=== PATIENT | female | born 1995 | race African-American/Black ===

== ENCOUNTER 2016-06-05 18:30 | Emergency (ER) | payer SELFPAY ==
[~2016-06-05] VITALS: Ht 160 cm; Wt 72.6 kg
[~2016-06-05 18:30] MED LIST: ACYCLOVIR200 MG ORAL; ACYCLOVIR400 MG ORAL; AZITHROMYCIN250 MG ORAL; BACTRIM DS TAB1 EAC1 ORAL; CIPROFLOXACIN500 M2 ORAL; CORTISONE + COO28 GM TP; DIFLUCAN200 MG ORAL; HYDROXYZINE HCL50 M1 PO; IBUPROFEN600 MG ORAL; KEFLEX500 MG ORAL; METRONIDAZOLE500 MG ORAL; MONISTAT 744 GM VG; NKM; NORCO 5-325 TA1 EACH ORAL; NYSTOP POWDER15 GM EXT; PHENAZOPYRIDIN100 MG ORAL; TAMIFLU75 MG ORAL; TYLENOL325 MG ORAL; VALTREX1000 MG PO; VIBRAMYCIN100 MG ORAL
[2016-06-05] MEDS ORDERED: Morphine Sulfate 4mg/ml Inj IVP ONE (19:00)
[2016-06-05 19:36] VITALS: BP 111/62
[2016-06-05 20:20] LABS: APPEARANCE,URINE SLIGHTLY CLOUDY; KETONES,URINE 1+ (NEGATIVE); LEUKOCYTE ESTERASE ,URINE 1+ (NEGATIVE); NITRITE,URINE NEGATIVE (NEGATIVE); PH,URINE 5 (4.5-8.0); PROTEIN,URINE 1+ (NEGATIVE); UROBILINOGEN,URINE 1 MG/DL (0.0-1.0)
[2016-06-05 20:24] LABS: BASOPHILS % (AUTO) 1.1 % (0.0-2.0); EOSINOPHILS % (AUTO) 0.7 % (0.0-3.0); LYMPHOCYTES % (AUTO) 17.1 % (20.0-45.0); MEAN CORPUSCULAR HEMOGLOBIN 28.3 PG (27.0-31.0); MEAN CORPUSCULAR HGB CONC 31.7 G/DL (32.0-36.0); MEAN CORPUSCULAR VOLUME 89 FL (80-99); MEAN PLATELET VOLUME 6.9 FL (6.5-10.1); MONOCYTES % (AUTO) 6.9 % (1.0-10.0); NEUTROPHILS % (AUTO) 74.2 % (45.0-75.0); PLATELET COUNT 267 K/UL (150-450); RED CELL DISTRIBUTION WIDTH 12.8 % (11.6-14.8); WHITE BLOOD COUNT 6.8 K/UL (4.8-10.8)
[2016-06-05 20:36] LABS: ALANINE AMINOTRANSFERASE 17 U/L (3-33); ALBUMIN/GLOBULIN RATIO 1.6 (1.0-2.7); ANION GAP 14 (5-15); ASPARTATE AMINO TRANSFERASE 19 U/L (5-40); CALCIUM 9.2 mg/dL (8.6-10.2); CARBON DIOXIDE 25 mEQ/L (20-30); CHLORIDE 101 mEQ/L (98-107); CREATININE 0.8 mg/dL (0.5-0.9); GLOMERULAR FILTRATION RATE > 60 mL/min (>60); HEMOLYSIS 2; POTASSIUM 4.4 mEQ/L (3.4-4.9); SODIUM 140 mEQ/L (135-145); TOTAL PROTEIN 7.1 g/dL (6.6-8.7)
[2016-06-05 20:46] LABS: RBC,URINE TNTC /HPF (0 - 2)
[2016-06-05 20:47] LABS: BACTERIA,URINE MODERATE /HPF; SQUAMOUS EPITHELIAL CELL,UR FEW /LPF (NONE/OCC)
[2016-06-05] MEDS ORDERED: Ketorolac 30mg Inj IV ONE (21:00)
[2016-06-05] MEDS ORDERED: KEFLEX500 MG ORAL (21:15)
[2016-06-05] MEDS ORDERED: Azithromycin 250mg tab ORAL ONE (21:15)
[2016-06-05] MEDS ORDERED: IBUPROFEN600 MG ORAL (21:15)
[2016-06-05] MEDS ORDERED: PHENAZOPYRIDIN100 MG ORAL (21:15)
[2016-06-05] MEDS ORDERED: DOXYCYCLINE MO100 MG ORAL (21:15)
[2016-06-05] MEDS ORDERED: TRAMADOL HCL50 MG ORAL (21:15)
[2016-06-05] MEDS ORDERED: Lidocaine 1% MPF 10mg/ml 5ml ONE (21:20)
[2016-06-05 21:32] VITALS: BP 115/68
--- NOTE | 2016-06-06 12:35 | Diagnostic Imaging Report ---
Indications: Pelvic pain, LMP 05/30/16 Technique: Transabdominal and transvaginal real-time grayscale and duplex Doppler imaging of the pelvis was performed. Findings: Comparison: 12/15/2015 Uterus measures 6.5 x 4.2 x 3.4cm. It demonstrates a 7 mm circumscribed hypoechoic focus in its posterior fundal myometrium, intramural to subserosal in location. The endometrial complex measures 10 mm in diameter. It is unremarkable in appearance without obvious focal abnormality. Cervix unremarkable. No free fluid is present in the cul-de-sac. Right ovary not identified. No extra-ovarian abnormality is seen. Left ovary measures 2.9 x 2.2 x 1.5 cm. It contains multiple small peripheral follicles.. Duplex Doppler imaging demonstrates normal blood flow. No extra-ovarian abnormality is seen. IMPRESSION: Small uterine fibroid Nonvisualization right ovary Otherwise negative
--- NOTE | 2016-06-06 19:15 | Emergency Room Report ---
History of Present Illness General Chief Complaint: Abdominal Pain Source: Patient Present Illness HPI 21-year-old female presents ED complaining of lower abdominal pain with vaginal bleeding. States symptoms started today. Notes vaginal bleeding. Denies any discharge. Denies any fevers or chills. Pain is sharp, 10 out of 10, nonradiating. No other aggravating relieving factors. No nausea or vomiting. Denies dysuria or hematuria. Denies any other associated symptoms Allergies: Coded Allergies: No Known Allergies (Unverified , 12/09/13) Patient History Past Medical History: asthma, COPD Past Surgical History: none Pertinent Family History: none Social History: Denies: alcohol use, drug use, smoking Last Menstrual Period: 05/29/16 Now: No Immunizations: UTD Reviewed Nursing Documentation: PMH: Agreed, PSxH: Agreed Nursing Documentation-PMH Past Medical History: No History, Except For Hx Cardiac Problems: No Hx Hypertension: No Hx Pacemaker: No Hx Asthma: Yes Hx COPD: Yes Hx Diabetes: No Hx Cancer: No Hx Gastrointestinal Problems: Yes Hx Dialysis: No Hx Neurological Problems: No Hx Cerebrovascular Accident: No Hx Seizures: No Review of Systems All Other Systems: negative except mentioned in HPI Physical Exam Vital Signs Date Time Temp Pulse Resp B/P Pulse Ox O2 Delivery O2 Flow Rate FiO2 06/05/16 18:36 97.9 99 13 116/87 100 Room Air Sp02 EP Interpretation: reviewed, normal General Appearance: alert, GCS 15, non-toxic, mild distress Head: normocephalic Eyes: bilateral eye PERRL, bilateral eye normal inspection ENT: normal ENT inspection Neck: normal inspection Respiratory: chest non-tender, lungs clear, normal breath sounds, speaking full sentences Cardiovascular #1: regular rate, rhythm, no edema Gastrointestinal: normal bowel sounds, soft, non-distended, no guarding, no rebound, tenderness - suprapubic Rectal: deferred Genitourinary: no CVA tenderness Musculoskeletal: normal inspection Neurologic: alert, oriented x3, responsive, motor strength/tone normal, sensory intact, speech normal Psychiatric: normal inspection Skin: normal inspection Lymphatic: normal inspection Medical Decision Making Diagnostic Impression: Primary Impression: Fibroid Qualified Codes: D25.9 - Leiomyoma of uterus, unspecified Additional Impression: UTI (urinary tract infection) Qualified Codes: N39.0 - Urinary tract infection, site not specified ER Course Hospital Course 21-year-old female presents to ED complaining of lower abdominal pain. vaginal bleeding Differential diagnoses include: gastrits, gastroenterits, ectopic , ovarian torsion/cyst, UTI Clinical course Patient placed on stretcher in ED. After initial history and physical I ordered labs, IV fluids and pain meds and pelvic ultrasound. Labs-no leukocytosis, electrolytes okay, beta hCG negative, UA + bacteria Pelvic ultrasound- fibroids Reassurance given. Patient was previously admitted for treatment of PID. Patient shows no signs of discharge at this time however given history we will treat again for potential PID. Given Rocephin and azithromycin here in ED Diagnosis - fibroids, UTI, PID Stable and discharged to home with Rx Motrin, Tramadol, doxycycline, Pyridium, Keflex. Followup with PMD/SERVICE OPERATOR. Return to ED if symptoms recur or worsen Labs Test 06/05/16 19:46 White Blood Count 6.8 K/UL (4.8-10.8) Red Blood Count 4.30 M/UL (4.20-5.40) Hemoglobin 12.2 G/DL (12.0-16.0) Hematocrit 38.3 % (37.0-47.0) Mean Corpuscular Volume 89 FL (80-99) Mean Corpuscular Hemoglobin 28.3 PG (27.0-31.0) Mean Corpuscular Hemoglobin Concent 31.7 G/DL (32.0-36.0) Red Cell Distribution Width 12.8 % (11.6-14.8) Platelet Count 267 K/UL (150-450) Mean Platelet Volume 6.9 FL (6.5-10.1) Neutrophils (%) (Auto) 74.2 % (45.0-75.0) Lymphocytes (%) (Auto) 17.1 % (20.0-45.0) Monocytes (%) (Auto) 6.9 % (1.0-10.0) Eosinophils (%) (Auto) 0.7 % (0.0-3.0) Basophils (%) (Auto) 1.1 % (0.0-2.0) Urine Color Yellow Urine Appearance Slightly cloudy Urine pH 5 (4.5-8.0) Urine Specific [place] 1.025 (1.005-1.035) Urine Protein 1+ (NEGATIVE) Urine Glucose (UA) Negative (NEGATIVE) Urine Ketones 1+ (NEGATIVE) Urine Occult Blood 5+ (NEGATIVE) Urine Nitrite Negative (NEGATIVE) Urine Bilirubin Negative (NEGATIVE) Urine Urobilinogen 1 MG/DL (0.0-1.0) Urine Leukocyte Esterase 1+ (NEGATIVE) Urine RBC Tntc /HPF (0 - 2) Urine WBC 2-4 /HPF (0 - 2) Urine Squamous Epithelial Cells Few /LPF (NONE/OCC) Urine Bacteria Moderate /HPF (NONE) Urine HCG, Qualitative Negative Sodium Level 140 mEQ/L (135-145) Potassium Level 4.4 mEQ/L (3.4-4.9) Chloride Level 101 mEQ/L (98-107) Carbon Dioxide Level 25 mEQ/L (20-30) Anion Gap 14 (5-15) Blood Urea Nitrogen 14 mg/dL (7-23) Creatinine 0.8 mg/dL (0.5-0.9) Estimat Glomerular Filtration Rate > 60 mL/min (>60) Glucose Level 98 mg/dL (74-106) Calcium Level 9.2 mg/dL (8.6-10.2) Total Bilirubin < 0.2 mg/dL (0.0-1.2) Aspartate Amino Transf (AST/SGOT) 19 U/L (5-40) Alanine Aminotransferase (ALT/SGPT) 17 U/L (3-33) Alkaline Phosphatase 65 U/L (35-104) Total Protein 7.1 g/dL (6.6-8.7) Albumin 4.4 g/dL (3.5-5.2) Globulin 2.7 g/dL Albumin/Globulin Ratio 1.6 (1.0-2.7) Human Chorionic Gonadotropin, Quant < 1 mIU/mL CT/MRI/US Diagnostic Results CT/MRI/US Diagnostic Results : Imaging Test Ordered: Pelvic US Impression uterine fibroid. no other acute process Last Vital Signs Date Time Temp Pulse Resp B/P Pulse Ox O2 Delivery O2 Flow Rate FiO2 06/05/16 21:32 97.7 69 15 115/68 100 Room Air Status: improved Disposition: HOME, SELF-CARE Condition: Stable Scripts Phenazopyridine Hcl* (PYRIDIUM*) 100 Mg Tablet 100 MG ORAL THREE TIMES A DAY, #10 TAB Prov: MARIA FERNANDA SANTIZO M.D. 06/05/16 Doxycycline Monohydrate* (DOXYCYCLINE MONOHYDRATE*) 100 Mg Capsule 100 MG ORAL Q12H, #14 CAP 0 Refills Prov: MARIA FERNANDA SANTIZO M.D. 06/05/16 Cephalexin* (KEFLEX*) 500 Mg Capsule 500 MG ORAL Q6H, #28 CAP 0 Refills Prov: MARIA FERNANDA SANTIZO M.D. 06/05/16 Tramadol Hcl* (ULTRAM*) 50 Mg Tablet 50 MG ORAL Q6H Y for For Pain, #20 TAB 0 Refills Prov: MARIA FERNANDA SANTIZO M.D. 06/05/16 Ibuprofen* (MOTRIN*) 600 Mg Tablet 600 MG ORAL Q8H Y for For Pain, #30 TAB 0 Refills Prov: MARIA FERNANDA SANTIZO M.D. 06/05/16 Referrals: [employer] [facility],REFERRIN Patient Instructions: Uterine Fibroids, [id number] MARIA FERNANDA SANTIZO M.D. Jun 06, 2016 19:15
== END 2016-06-05 21:32 | disposition home or self-care (01) ==
LOC: EMR 18:54
DX: D25.9 Leiomyoma of uterus, unspecified (principal); N39.0 Urinary tract infection, site not specified; J44.9 Chronic obstructive pulmonary disease, unspecified; J45.909 Unspecified asthma, uncomplicated
CPT/HCPCS: 36415; 76856; 80053; 81003; 81025; 84702; 85025; 87086; 96372; 96374; 96375; 99284; J0696; J1885; J2270; J2405

== ENCOUNTER 2016-07-29 09:07 | Emergency (ER) | payer SELFPAY ==
[~2016-07-29] VITALS: Ht 160 cm; Wt 71.7 kg
[~2016-07-29 09:07] MED LIST changes: +DOXYCYCLINE MO100 MG ORAL; +TRAMADOL HCL50 MG ORAL
[2016-07-29 09:20] VITALS: BP 111/76
[2016-07-29] MEDS ORDERED: Ketorolac 30mg Inj IV ONE (09:45)
[2016-07-29 09:52] LABS: APPEARANCE,URINE CLOUDY; KETONES,URINE NEGATIVE (NEGATIVE); LEUKOCYTE ESTERASE ,URINE 2+ (NEGATIVE); NITRITE,URINE NEGATIVE (NEGATIVE); PH,URINE 5 (4.5-8.0); PROTEIN,URINE 3+ (NEGATIVE); UROBILINOGEN,URINE NORMAL MG/DL (0.0-1.0)
[2016-07-29 10:06] LABS: BASOPHILS % (AUTO) 1.2 % (0.0-2.0); EOSINOPHILS % (AUTO) 1.5 % (0.0-3.0); LYMPHOCYTES % (AUTO) 19.6 % (20.0-45.0); MEAN CORPUSCULAR HEMOGLOBIN 29.2 PG (27.0-31.0); MEAN CORPUSCULAR HGB CONC 33.2 G/DL (32.0-36.0); MEAN CORPUSCULAR VOLUME 88 FL (80-99); MEAN PLATELET VOLUME 6.9 FL (6.5-10.1); MONOCYTES % (AUTO) 9.3 % (1.0-10.0); NEUTROPHILS % (AUTO) 68.3 % (45.0-75.0); PLATELET COUNT 253 K/UL (150-450); RED BLOOD COUNT 4.43 M/UL (4.20-5.40); RED CELL DISTRIBUTION WIDTH 12.3 % (11.6-14.8); WHITE BLOOD COUNT 6.6 K/UL (4.8-10.8)
[2016-07-29 10:14] LABS: ALANINE AMINOTRANSFERASE 27 U/L (3-33); ALBUMIN/GLOBULIN RATIO 1.4 (1.0-2.7); ANION GAP 13 (5-15); ASPARTATE AMINO TRANSFERASE 26 U/L (5-40); CALCIUM 9.3 mg/dL (8.6-10.2); CARBON DIOXIDE 26 mEQ/L (20-30); CHLORIDE 99 mEQ/L (98-107); CREATININE 0.9 mg/dL (0.5-0.9); GLOMERULAR FILTRATION RATE > 60 mL/min (>60); HEMOLYSIS 3; LIPASE 29 U/L (< 60); POTASSIUM 4.1 mEQ/L (3.4-4.9); SODIUM 138 mEQ/L (135-145); TOTAL PROTEIN 7.1 g/dL (6.6-8.7)
[2016-07-29 10:17] LABS: BACTERIA,URINE FEW /HPF; RBC,URINE TNTC /HPF (0 - 2); SQUAMOUS EPITHELIAL CELL,UR OCCASIONAL /LPF (NONE/OCC)
--- NOTE | 2016-07-29 12:44 | Emergency Room Report ---
History of Present Illness General Chief Complaint: Abdominal Pain Source: Patient Present Illness HPI Patient presents with suprapubic pain which began 07/27. She had similar pain last month and was diagnosed with a fibroid. Pain is 8/10, constant, not radiate. Some menstrual bleeding, not excessive. No fevers, dysuria, NVD, change bowels. no dizziness, ARREDONDO. Denies discharge. She took some xanax, THC and some other pain pills. Minimally better. She doesn't think she is , but is not sure. She's had PID in the past and this feels different. Allergies: Coded Allergies: No Known Allergies (Unverified , 12/09/13) Patient History Past Medical History: see triage record Social History: Reports: alcohol use, smoking Social History Narrative with sister Last Menstrual Period: now Now: No Reviewed Nursing Documentation: PMH: Agreed, PSxH: Agreed Nursing Documentation-PMH Past Medical History: No History, Except For Hx Cardiac Problems: No Hx Hypertension: No Hx Pacemaker: No Hx Asthma: Yes Hx COPD: Yes Hx Diabetes: No Hx Cancer: No Hx Gastrointestinal Problems: Yes - fibroids Hx Dialysis: No Hx Neurological Problems: No Hx Cerebrovascular Accident: No Hx Seizures: No Review of Systems All Other Systems: negative except mentioned in HPI Physical Exam Vital Signs Date Time Temp Pulse Resp B/P Pulse Ox O2 Delivery O2 Flow Rate FiO2 07/29/16 09:20 98.2 92 18 111/76 98 Room Air Sp02 EP Interpretation: reviewed, normal General Appearance: well appearing, no apparent distress, GCS 15 Head: normocephalic Eyes: bilateral eye PERRL, bilateral eye Scleral Injection ENT: moist mucus membranes Neck: supple Respiratory: lungs clear, normal breath sounds Cardiovascular #1: regular rate, rhythm Cardiovascular #2: 2+ radial (R) Gastrointestinal: normal inspection, normal bowel sounds, non tender, no mass, non-distended Genitourinary: no CVA tenderness, other - pelvic deferred Musculoskeletal: back normal, gait/station normal, normal range of motion Neurologic: alert, oriented x3, grossly normal - slight slurred Psychiatric: mood/affect normal Skin: normal inspection, warm/dry Medical Decision Making Diagnostic Impression: Primary Impression: Pelvic pain ER Course Patient presents with pelvic pain with h/o fibroid. DDx: UTI, fibroid, PID, dysmenorrhea. Evaluation with labs, UA. Review of ultrasound. IV hydration and analgesia ordered. Exam against PID. Labs with normal WBC and h/h. + pyuria, but full of menstrual blood (will still cover with macrobid). (When had PID, WBC elevated and patient was febrile.) Patient improved with treatment. Discussed need to follow up with knife finisher. Patient improved and stable for outpatient observation and treatment. Laboratory Tests Test 07/29/16 09:25 07/29/16 09:55 Urine Color Red Urine Appearance Cloudy Urine pH 5 (4.5-8.0) Urine Specific [place] 1.020 (1.005-1.035) Urine Protein 3+ (NEGATIVE) H Urine Glucose (UA) Negative (NEGATIVE) Urine Ketones Negative (NEGATIVE) Urine Occult Blood 5+ (NEGATIVE) H Urine Nitrite Negative (NEGATIVE) Urine Bilirubin Negative (NEGATIVE) Urine Urobilinogen Normal MG/DL (0.0-1.0) Urine Leukocyte Esterase 2+ (NEGATIVE) H Urine RBC Tntc /HPF (0 - 2) H Urine WBC 5-10 /HPF (0 - 2) H Urine Squamous Epithelial Cells Occasional /LPF Urine Bacteria Few /HPF (NONE) Urine HCG, Qualitative Negative White Blood Count 6.6 K/UL (4.8-10.8) Red Blood Count 4.43 M/UL (4.20-5.40) Hemoglobin 12.9 G/DL (12.0-16.0) Hematocrit 39.0 % (37.0-47.0) Mean Corpuscular Volume 88 FL (80-99) Mean Corpuscular Hemoglobin 29.2 PG (27.0-31.0) Mean Corpuscular Hemoglobin Concent 33.2 G/DL (32.0-36.0) Red Cell Distribution Width 12.3 % (11.6-14.8) Platelet Count 253 K/UL (150-450) Mean Platelet Volume 6.9 FL (6.5-10.1) Neutrophils (%) (Auto) 68.3 % (45.0-75.0) Lymphocytes (%) (Auto) 19.6 % (20.0-45.0) L Monocytes (%) (Auto) 9.3 % (1.0-10.0) Eosinophils (%) (Auto) 1.5 % (0.0-3.0) Basophils (%) (Auto) 1.2 % (0.0-2.0) Sodium Level 138 mEQ/L (135-145) Potassium Level 4.1 mEQ/L (3.4-4.9) Chloride Level 99 mEQ/L (98-107) Carbon Dioxide Level 26 mEQ/L (20-30) Anion Gap 13 (5-15) Blood Urea Nitrogen 12 mg/dL (7-23) Creatinine 0.9 mg/dL (0.5-0.9) Estimate Glomerular Filtration Rate > 60 mL/min (>60) Glucose Level 59 mg/dL (74-106) L Calcium Level 9.3 mg/dL (8.6-10.2) Total Bilirubin 0.3 mg/dL (0.0-1.2) Aspartate Amino Transferase (AST) 26 U/L (5-40) Alanine Aminotransferase (ALT) 27 U/L (3-33) Alkaline Phosphatase 56 U/L (35-104) Total Protein 7.1 g/dL (6.6-8.7) Albumin 4.2 g/dL (3.5-5.2) Globulin 2.9 g/dL Albumin/Globulin Ratio 1.4 (1.0-2.7) Lipase 29 U/L (< 60) CT/MRI/US Diagnostic Results CT/MRI/US Diagnostic Results : Imaging Test Ordered: prior ultrasound Impression 06/05/16 IMPRESSION: Small uterine fibroid Nonvisualization right ovary Last Vital Signs Date Time Temp Pulse Resp B/P Pulse Ox O2 Delivery O2 Flow Rate FiO2 07/29/16 13:15 98.2 71 18 105/66 98 Room Air Status: improved Disposition: HOME, SELF-CARE Condition: Improved Scripts Ibuprofen* (MOTRIN*) 600 Mg Tablet 600 MG ORAL Q6HR Y for For Pain, #20 TAB 0 Refills Prov: Yony Mendieta M.D. 07/29/16 Nitrofurantoin Monohyd/M-Cryst* (MACROBID 100 MG*) 100 Mg Capsule 100 MG ORAL EVERY 12 HOURS, #14 CAP Prov: Yony Mendieta M.D. 07/29/16 Tramadol Hcl* (ULTRAM*) 50 Mg Tablet 50 MG ORAL Q6H Y for For Pain, #12 TAB 0 Refills Prov: Yony Mendieta M.D. 07/29/16 Referrals: NOT CHOSEN [facility]/,REFERRING (PCP) Yony Mendieta M.D. Jul 29, 2016 12:44
[2016-07-29] MEDS ORDERED: NITROFURANTOIN100 M2 ORAL (12:50)
[2016-07-29] MEDS ORDERED: TRAMADOL HCL50 MG ORAL (12:50)
[2016-07-29] MEDS ORDERED: IBUPROFEN600 MG ORAL (12:50)
[2016-07-29 13:15] VITALS: BP 105/66
== END 2016-07-29 13:16 | disposition home or self-care (01) ==
LOC: EMR 09:44
DX: R10.2 Pelvic and perineal pain (principal); J44.9 Chronic obstructive pulmonary disease, unspecified; J45.909 Unspecified asthma, uncomplicated
CPT/HCPCS: 36415; 80053; 81003; 81025; 83690; 85025; 96360; 96374; 99284; J1885

== ENCOUNTER 2016-09-22 11:12 | Emergency (ER) | payer SELFPAY ==
[~2016-09-22] VITALS: Ht 160 cm; Wt 68.0 kg
[~2016-09-22 11:12] MED LIST changes: +NITROFURANTOIN100 M2 ORAL
[2016-09-22] MEDS ORDERED: Ketorolac 60mg Inj IM ONE (11:45)
--- NOTE | 2016-09-22 12:20 | Diagnostic Imaging Report ---
Indications: Headache, patient states she "had a few blackouts while driving yesterday" Technique: Continuous helical CT imaging of the brain was performed with automatic exposure control on a Siemens sensation [address] scanner. Axial and coronal images were reconstructed at 5 mm slice thickness and interval. CTDI volume(s): 70 mGy Total DLP: 1284 mGy-cm Findings: Comparison: None. Intracranial anatomy is unremarkable. No evidence of mass or hemorrhage, other attenuation abnormality, mass effect, midline shift, hydrocephalus or increased intracranial pressure. Bone window images are unremarkable. Opacification of a single left posterior ethmoid air cell. Remainder visualized paranasal sinuses and mastoid air cells are clear. IMPRESSION: Mild sinus disease Otherwise negative noncontrast CT scan of the brain . The CT scanner at [facility] is accredited by the [employer] and the scans are performed using protocols designed to limit radiation exposure to as low as reasonably achievable to attain images of sufficient resolution adequate for diagnostic evaluation.
[2016-09-22 12:31] VITALS: BP 115/67
[2016-09-22 12:35] LABS: APPEARANCE,URINE CLEAR; KETONES,URINE NEGATIVE (NEGATIVE); LEUKOCYTE ESTERASE ,URINE NEGATIVE (NEGATIVE); NITRITE,URINE NEGATIVE (NEGATIVE); PH,URINE 8 (4.5-8.0); PROTEIN,URINE NEGATIVE (NEGATIVE); UROBILINOGEN,URINE NORMAL MG/DL (0.0-1.0)
[2016-09-22 12:44] LABS: BACTERIA,URINE OCCASIONAL /HPF; SQUAMOUS EPITHELIAL CELL,UR OCCASIONAL /LPF (NONE/OCC); WBC,URINE 0-2 /HPF (0 - 2)
[2016-09-22 13:17] VITALS: BP 103/62
[2016-09-22 13:19] VITALS: BP_SYST 104; BP_SYST 114; BP_DIAS 57; BP_DIAS 80
[2016-09-22] MEDS ORDERED: IBUPROFEN600 MG ORAL (13:19)
[2016-09-22 13:24] VITALS: BP 113/79
--- NOTE | 2016-09-22 13:59 | Emergency Room Report ---
History of Present Illness General Chief Complaint: General Complaint Source: Patient Present Illness HPI Patient is a 21-year-old female who presented after increased left-sided throbbing headache. The patient gradual onset of symptoms over the past 2 days. Patient had reportedly had increased stress at work. The patient had prior imaging. She had no associated numbness or weakness. The patient denied any neck stiffness. Patient stated that she had recently had unprotected sex. She denied any vaginal discharge or .. Allergies: Coded Allergies: No Known Allergies (Unverified , 12/09/13) Patient History Past Medical History: see triage record Now: No Reviewed Nursing Documentation: PMH: Agreed, PSxH: Agreed Nursing Documentation-PMH Hx Cardiac Problems: No Hx Hypertension: No Hx Pacemaker: No Hx Asthma: Yes Hx COPD: Yes Hx Diabetes: No Hx Cancer: No Hx Gastrointestinal Problems: Yes - fibroids Hx Dialysis: No Hx Neurological Problems: No Hx Cerebrovascular Accident: No Hx Seizures: No Review of Systems All Other Systems: negative except mentioned in HPI Physical Exam Vital Signs Date Time Temp Pulse Resp B/P Pulse Ox O2 Delivery O2 Flow Rate FiO2 09/22/16 11:17 98.2 96 20 115/67 100 General Appearance: well appearing, no apparent distress, alert, GCS 15 Head: normocephalic, atraumatic ENT: hearing grossly normal, normal voice Neck: full range of motion, supple Respiratory: chest non-tender, lungs clear, normal breath sounds, no respiratory distress, speaking full sentences Gastrointestinal: normal inspection, normal bowel sounds, non tender Musculoskeletal: normal inspection, back normal, digits/nails normal, no calf tenderness Neurologic: normal inspection, alert, oriented x3, responsive, computer methods analyst III-XII nml as tested, motor strength/tone normal, normal gait Psychiatric: mood/affect normal Skin: no rash Medical Decision Making Diagnostic Impression: Primary Impression: Headache Additional Impression: UTI (urinary tract infection) ER Course Patient presented for headache. Differential diagnoses included but was not limited to skull fracture, subarachnoid hemorrhage, meningitis, aneurysm, mass lesion, intracranial hemorrhage. Because of complexity of patient's case imaging studies were ordered. CT the head read by radiology showed a minimal sinus disease. There is no acute hemorrhage or mass noted. The patient's orthostatic vital signs were noted be mildly orthostatic. The patient is advised to continue by mouth hydration. Patient was given a note for work. She was given Rocephin empirically for possible STD and urinary tract infection. Patient is advised to have outpatient STD testing as indicated. Labs Test 09/22/16 12:15 Urine Color Pale yellow Urine Appearance Clear Urine pH 8 (4.5-8.0) Urine Specific [place] 1.010 (1.005-1.035) Urine Protein Negative (NEGATIVE) Urine Glucose (UA) Negative (NEGATIVE) Urine Ketones Negative (NEGATIVE) Urine Occult Blood 3+ (NEGATIVE) Urine Nitrite Negative (NEGATIVE) Urine Bilirubin Negative (NEGATIVE) Urine Urobilinogen Normal MG/DL (0.0-1.0) Urine Leukocyte Esterase Negative (NEGATIVE) Urine RBC 2-4 /HPF (0 - 2) Urine WBC 0-2 /HPF (0 - 2) Urine Squamous Epithelial Cells Occasional /LPF Urine Bacteria Occasional /HPF (NONE) Urine HCG, Qualitative Negative Last Vital Signs Date Time Temp Pulse Resp B/P Pulse Ox O2 Delivery O2 Flow Rate FiO2 09/22/16 13:24 98.2 73 20 113/79 100 Status: improved Disposition: HOME, SELF-CARE Condition: Stable Scripts Ibuprofen* (MOTRIN*) 600 Mg Tablet 600 MG ORAL Q8H Y for For Pain, #30 TAB 0 Refills Prov: Jose Goldstein 09/22/16 Patient Instructions: Urinary Tract Infection Jose Goldstein September 22, 2016 13:59
== END 2016-09-22 13:24 | disposition home or self-care (01) ==
LOC: EMR 11:36
DX: R51 Headache (principal); N39.0 Urinary tract infection, site not specified; J44.9 Chronic obstructive pulmonary disease, unspecified; J32.9 Chronic sinusitis, unspecified
CPT/HCPCS: 70450; 81003; 81025; 96372; 99284; J0696

== ENCOUNTER 2016-10-29 13:19 | Emergency (ER) | payer SELFPAY ==
[~2016-10-29] VITALS: Ht 160 cm; Wt 73.0 kg
[2016-10-29 13:24] VITALS: BP 124/76
[2016-10-29 14:14] LABS: APPEARANCE,URINE TURBID; KETONES,URINE NEGATIVE (NEGATIVE); LEUKOCYTE ESTERASE ,URINE 1+ (NEGATIVE); NITRITE,URINE NEGATIVE (NEGATIVE); PH,URINE 7 (4.5-8.0); PROTEIN,URINE NEGATIVE (NEGATIVE); UROBILINOGEN,URINE NORMAL MG/DL (0.0-1.0)
[2016-10-29] MEDS ORDERED: VALACYCLOVIR500 MG ORAL (14:44)
[2016-10-29] MEDS ORDERED: IBUPROFEN600 MG ORAL (14:44)
[2016-10-29 14:52] VITALS: BP 124/76
[2016-10-29 14:58] LABS: BACTERIA,URINE FEW /HPF; RBC,URINE 0-2 /HPF (0 - 2); SQUAMOUS EPITHELIAL CELL,UR MODERATE /LPF (NONE/OCC)
--- NOTE | 2016-10-29 21:08 | Emergency Room Report ---
History of Present Illness General Chief Complaint: General Complaint Source: Patient Present Illness [facility] The patient is a 21-year-old female presenting for genital herpes. The patient states that she was diagnosed 2 years prior. Pain is described as a 7/10 burning sensation around the left vaginal region and does not radiate. Worse with touch. She noticed herpetic lesions in the area 3 days prior. She denies any vaginal discharge, dysuria, hematuria, back pain, nausea, vomiting, fever, chills Allergies: Coded Allergies: No Known Allergies (Unverified , 12/09/13) Patient History Past Medical History: see triage record Pertinent Family History: none Last Menstrual Period: 10/13/16 Now: No Reviewed Nursing Documentation: PMH: Agreed, PSxH: Agreed Nursing Documentation-PMH Past Medical History: No History, Except For Hx Cardiac Problems: No Hx Hypertension: No Hx Pacemaker: No Hx Asthma: Yes Hx COPD: Yes Hx Diabetes: No Hx Cancer: No Hx Gastrointestinal Problems: Yes - fibroids Hx Dialysis: No Hx Cerebrovascular Accident: No Hx Seizures: No Review of Systems All Other Systems: negative except mentioned in HPI Physical Exam Vital Signs Date Time Temp Pulse Resp B/P Pulse Ox O2 Delivery O2 Flow Rate FiO2 10/29/16 13:24 98.4 98 14 124/76 98 Room Air Sp02 EP Interpretation: reviewed, normal General Appearance: no apparent distress, alert, GCS 15, non-toxic Head: normocephalic, atraumatic Eyes: bilateral eye PERRL, bilateral eye normal inspection ENT: hearing grossly normal, normal pharynx, no angioedema, normal voice Gastrointestinal: normal bowel sounds, non tender, soft, non-distended, no guarding, no rebound Genitourinary: normal inspection, no CVA tenderness, other - Herpetic lesions to the left external labia Musculoskeletal: back normal, gait/station normal, normal range of motion, non- tender Neurologic: alert, oriented x3, responsive, motor strength/tone normal, sensory intact, speech normal Psychiatric: judgement/insight normal, memory normal, mood/affect normal, no suicidal/homicidal ideation Skin: normal color, no rash, warm/dry, well hydrated Medical Decision Making PA Attestation Dr. sampson is my supervising physician. Patient management was discussed with my supervising physician Diagnostic Impression: Primary Impression: Herpes genitalis in women ER Course The patient is a 21-year-old female presenting for genital herpes. Differential diagnoses considered but not limited to: Gonorrhea, Chlamydia, herpes, urinary tract infection, among others PE: vitals WNL. NAD Abdominal exams unremarkable. No CVA tenderness External vaginal exam reveals herpetic lesions on the left labia. Exam done with andrew Downs in the room. The patient will be discharged home with a prescription for Valtrex. He needs to followup with primary doctor. ER precautions given Laboratory Tests Test 10/29/16 14:04 Urine Color Pale yellow Urine Appearance Turbid Urine pH 7 (4.5-8.0) Urine Specific [place] 1.010 (1.005-1.035) Urine Protein Negative (NEGATIVE) Urine Glucose (UA) Negative (NEGATIVE) Urine Ketones Negative (NEGATIVE) Urine Occult Blood Negative (NEGATIVE) Urine Nitrite Negative (NEGATIVE) Urine Bilirubin Negative (NEGATIVE) Urine Urobilinogen Normal MG/DL (0.0-1.0) Urine Leukocyte Esterase 1+ (NEGATIVE) H Urine RBC 0-2 /HPF (0 - 2) Urine WBC 2-4 /HPF (0 - 2) Urine Squamous Epithelial Cells Moderate /LPF (NONE/OCC) H Urine Bacteria Few /HPF (NONE) Urine HCG, Qualitative Negative Lab Results Impression UA unremarkable Last Vital Signs Date Time Temp Pulse Resp B/P Pulse Ox O2 Delivery O2 Flow Rate FiO2 10/29/16 14:55 98.4 68 14 124/76 98 Room Air Status: improved Disposition: HOME, SELF-CARE Condition: Improved Scripts Ibuprofen* (MOTRIN*) 600 Mg Tablet 600 MG ORAL Q8H Y for For Pain, #30 TAB 0 Refills Prov: JAI VERA.AKeesha 10/29/16 Valacyclovir Hcl* (VALTREX*) 500 Mg Tablet 1000 MG ORAL TWICE A DAY, #40 TAB Prov: JAI VERA P.AKeesha 10/29/16 Referrals: NON PHYSICIAN (PCP) Additional Instructions: I discussed my findings with the patient. All questions and concerns have been answered. Treatment and medication compliance have been addressed. I advised the patient that they need to follow up with PMD in 3-5 days. Return to ED if symptoms worsen, new symptoms arise, or if needed for any reason. Patient verbalized understanding of discharge instructions. JAI VERA Oct 29, 2016 21:08
== END 2016-10-29 14:55 | disposition home or self-care (01) ==
LOC: EMR 14:01
DX: A60.00 Herpesviral infection of urogenital system, unspecified (principal); J44.9 Chronic obstructive pulmonary disease, unspecified
CPT/HCPCS: 81003; 81025; 99284

== ENCOUNTER 2016-10-31 13:45 | Emergency (ER) | payer SELFPAY ==
[~2016-10-31] VITALS: Ht 160 cm; Wt 73.0 kg
[~2016-10-31 13:45] MED LIST changes: +VALACYCLOVIR500 MG ORAL
[2016-10-31 14:21] VITALS: BP 118/71
--- NOTE | 2016-10-31 14:39 | Emergency Room Report ---
History of Present Illness General Chief Complaint: General Complaint Source: Patient Present Illness HPI 21-year-old female presents emergency department requesting a return to work note. Patient was previously seen here in the emergency department and diagnosed and treated for vaginal herpes. She denies fevers, chills, pain. Patient states her symptoms have improved. Denies CP, Palpitations, LOC, AMS, dizziness, Changes in Vision, Sensation, paresthesias, or a sudden severe headache. Allergies: Coded Allergies: No Known Allergies (Unverified , 12/09/13) Patient History Past Medical History: see triage record Past Surgical History: none Last Menstrual Period: 10/14/16 Now: No : 0 Para: 0 Reviewed Nursing Documentation: PMH: Agreed, PSxH: Agreed Nursing Documentation-PMH Past Medical History: No History, Except For Hx Cardiac Problems: No Hx Hypertension: No Hx Pacemaker: No Hx Asthma: Yes Hx COPD: Yes Hx Diabetes: No Hx Cancer: No Hx Gastrointestinal Problems: Yes - fibroids Hx Dialysis: No Hx Cerebrovascular Accident: No Hx Seizures: No Review of Systems All Other Systems: negative except mentioned in HPI Physical Exam Vital Signs Date Time Temp Pulse Resp B/P Pulse Ox O2 Delivery O2 Flow Rate FiO2 10/31/16 14:21 98.2 92 18 118/71 100 Room Air Sp02 EP Interpretation: reviewed, normal General Appearance: no apparent distress, alert, GCS 15, non-toxic Head: normocephalic, atraumatic Eyes: bilateral eye PERRL, bilateral eye normal inspection ENT: hearing grossly normal, normal pharynx, no angioedema, normal voice Neck: full range of motion Respiratory: lungs clear, normal breath sounds, speaking full sentences Cardiovascular #1: regular rate, rhythm, no edema Musculoskeletal: back normal, gait/station normal, normal range of motion, non- tender Neurologic: alert, oriented x3, responsive, motor strength/tone normal, sensory intact, speech normal Psychiatric: judgement/insight normal, memory normal, mood/affect normal Skin: normal color, no rash, warm/dry, well hydrated Medical Decision Making PA Attestation Dr. Grimaldo is my supervising Physician whom patient management has been discussed with. Diagnostic Impression: Primary Impression: Encounter for medical screening examination ER Course 21-year-old female presents emergency department requesting a return to work note. Patient was previously seen here in the emergency department and diagnosed and treated for vaginal herpes. She denies fevers, chills, pain. Patient states her symptoms have improved. Denies CP, Palpitations, LOC, AMS, dizziness, Changes in Vision, Sensation, paresthesias, or a sudden severe headache. Ddx considered but are not limited to Herpes, cellullitis, infection, normal MSE Vital signs: are WNL, pt. is afebrile H&PE are most consistent with Normal MSE. no acute injury or disease noted at this time. pt. is NAD, NON-toxic, able to answer questions appropriately, pt. is oriented, and no signs of trauma or focal neurological deficits. ORDERS: none required at this time, the diagnosis is clinical ED INTERVENTIONS: - Pt. is provided a return to work note. DISCHARGE: At this time pt. is stable for d/c to home. Will provide printed patient care instructions, and any necessary prescriptions. Care plan and follow up instructions have been discussed with the patient prior to discharge. Last Vital Signs Date Time Temp Pulse Resp B/P Pulse Ox O2 Delivery O2 Flow Rate FiO2 10/31/16 14:21 98.3 92 18 118/71 100 Room Air Disposition: HOME, SELF-CARE Condition: Stable Departure Forms: Return to Work Return to Work Date: Oct 31, 2016 Work Restrictions: None Return to Full Activity: Oct 31, 2016 Patient Instructions: Medical Screening Exam Additional Instructions: Follow up with PCP in 3-5 days Return sooner to ED if new symptoms occur, or current symptoms become worse. - Please note that this Emergency Department Report was dictated using [employer] vet technology software, occasionally this can lead to erroneous entry secondary to interpretation by the dictation equipment. Kathleen Dias Oct 31, 2016 14:39
[2016-10-31 15:01] VITALS: BP 118/71
== END 2016-10-31 15:03 | disposition home or self-care (01) ==
LOC: EMR 14:30
DX: Z02.89 Encounter for other administrative examinations (principal); Z87.42 Personal history of other diseases of the female genital tract
CPT/HCPCS: 99282

== ENCOUNTER 2016-11-17 14:56 | Emergency (ER) | payer SELFPAY ==
[~2016-11-17] VITALS: Ht 160 cm; Wt 72.6 kg
[2016-11-17 15:14] VITALS: BP 114/78
[2016-11-17 16:26] LABS: APPEARANCE,URINE CLOUDY; KETONES,URINE NEGATIVE (NEGATIVE); LEUKOCYTE ESTERASE ,URINE 3+ (NEGATIVE); NITRITE,URINE NEGATIVE (NEGATIVE); PH,URINE 7 (4.5-8.0); PROTEIN,URINE 2+ (NEGATIVE); UROBILINOGEN,URINE 1 MG/DL (0.0-1.0)
[2016-11-17 16:38] LABS: RBC,URINE TNTC /HPF (0 - 2); WBC,URINE TNTC /HPF (0 - 2)
[2016-11-17 16:39] LABS: BACTERIA,URINE FEW /HPF; SQUAMOUS EPITHELIAL CELL,UR MANY /LPF (NONE/OCC)
[2016-11-17] MEDS ORDERED: CEPHALEXIN500 MG ORAL (17:00)
[2016-11-17] MEDS ORDERED: IBUPROFEN600 MG ORAL (17:00)
[2016-11-17 17:15] VITALS: BP 114/78
--- NOTE | 2016-11-17 18:18 | Emergency Room Report ---
History of Present Illness General Chief Complaint: Vaginal Source: Patient, Medical Record Present Illness HPI The patient is a 21-year-old female with a history of uterine fibroids presenting for lower abdominal pain and pain with urination. She states that symptoms began today. She noticed bright red blood with urination as well as increased pain. Pain is described as a 7/10 dull ache and does not radiate. No known relieving factors. she did not try any medications. She denies any vaginal discharge and denies other symptoms including N, V, F, chills, rash, back pain Allergies: Coded Allergies: No Known Allergies (Unverified , 12/09/13) Patient History Past Medical History: see triage record Pertinent Family History: none Last Menstrual Period: 11/06/16 Reviewed Nursing Documentation: PMH: Agreed, PSxH: Agreed Nursing Documentation-PMH Past Medical History: No History, Except For Hx Cardiac Problems: No Hx Hypertension: No Hx Pacemaker: No Hx Asthma: Yes Hx COPD: Yes Hx Diabetes: No Hx Cancer: No Hx Gastrointestinal Problems: Yes - fibroids Hx Dialysis: No Hx Cerebrovascular Accident: No Hx Seizures: No Review of Systems All Other Systems: negative except mentioned in HPI Physical Exam Vital Signs Date Time Temp Pulse Resp B/P Pulse Ox O2 Delivery O2 Flow Rate FiO2 11/17/16 15:00 98.1 92 14 114/78 99 Room Air Sp02 EP Interpretation: reviewed, normal General Appearance: no apparent distress, alert, GCS 15, non-toxic Head: normocephalic, atraumatic Eyes: bilateral eye PERRL, bilateral eye normal inspection ENT: hearing grossly normal, normal pharynx, no angioedema, normal voice Gastrointestinal: normal inspection, normal bowel sounds, soft, tenderness - suprapubic Rectal: deferred Genitourinary: normal inspection, no CVA tenderness Musculoskeletal: back normal, gait/station normal, normal range of motion, non- tender Neurologic: alert, oriented x3, responsive, motor strength/tone normal, sensory intact, speech normal Psychiatric: judgement/insight normal, memory normal, mood/affect normal, no suicidal/homicidal ideation Skin: normal color, no rash, warm/dry, well hydrated Medical Decision Making PA Attestation Dr. Grimaldo is my supervising physician. Patient management was discussed with my supervising physician Diagnostic Impression: Primary Impression: Urinary tract infection Qualified Codes: N39.0 - Urinary tract infection, site not specified; R31.9 - Hematuria, unspecified ER Course The patient is a 21-year-old female with a history of uterine fibroids presenting for lower abdominal pain and pain with urination Differential diagnosis considered but not limited to: UTI, vaginitis, pyelonephritis, , uterine fibroids, among others PE: Afebrile. NAD TTP over suprapubic region only. No CVA tenderness. Otherwise unremarkable. Motrin given for pain with good relief. Urinalysis is consistent with urinary tract infection. She'll be discharged home with a prescription for Keflex and needs to follow up with primary doctor. ER precautions given Laboratory Tests Test 11/17/16 15:04 Urine Color Yellow Urine Appearance Cloudy Urine pH 7 (4.5-8.0) Urine Specific [place] 1.010 (1.005-1.035) Urine Protein 2+ (NEGATIVE) H Urine Glucose (UA) Negative (NEGATIVE) Urine Ketones Negative (NEGATIVE) Urine Occult Blood 5+ (NEGATIVE) H Urine Nitrite Negative (NEGATIVE) Urine Bilirubin Negative (NEGATIVE) Urine Urobilinogen 1 MG/DL (0.0-1.0) H Urine Leukocyte Esterase 3+ (NEGATIVE) H Urine RBC Tntc /HPF (0 - 2) H Urine WBC Tntc /HPF (0 - 2) H Urine Squamous Epithelial Cells Many /LPF (NONE/OCC) H Urine Bacteria Few /HPF (NONE) Urine HCG, Qualitative Negative Lab Results Impression UA consistent with UTI Last Vital Signs Date Time Temp Pulse Resp B/P Pulse Ox O2 Delivery O2 Flow Rate FiO2 11/17/16 17:15 98.1 92 14 114/78 99 Room Air Status: improved Disposition: HOME, SELF-CARE Condition: Improved Scripts Ibuprofen* (MOTRIN*) 600 Mg Tablet 600 MG ORAL Q8H Y for For Pain, #30 TAB 0 Refills Prov: TERZIAN,JAI P.A. 11/17/16 Cephalexin* (KEFLEX*) 500 Mg Capsule 500 MG ORAL EVERY 6 HOURS, #28 CAP Prov: TERZIAN,JAI P.A. 11/17/16 Patient Instructions: Urinary Tract Infection Additional Instructions: I discussed my findings with the patient. All questions and concerns have been answered. Treatment and medication compliance have been addressed. I advised the patient that they need to follow up with PMD in 3-5 days. Return to ED if symptoms worsen, new symptoms arise, or if needed for any reason. Patient verbalized understanding of discharge instructions. JAI VERA Nov 17, 2016 18:18
== END 2016-11-17 17:16 | disposition home or self-care (01) ==
LOC: EMR 15:36
DX: N39.0 Urinary tract infection, site not specified (principal); R31.9 Hematuria, unspecified; J44.9 Chronic obstructive pulmonary disease, unspecified; J45.909 Unspecified asthma, uncomplicated
CPT/HCPCS: 81003; 81025; 87086; 99284

== ENCOUNTER 2016-11-20 07:53 | Emergency (ER) | payer SELFPAY ==
[~2016-11-20] VITALS: Ht 160 cm; Wt 72.6 kg
[~2016-11-20 07:53] MED LIST changes: +CEPHALEXIN500 MG ORAL
[2016-11-20 08:01] VITALS: BP 114/71
[2016-11-20 08:21] VITALS: BP 114/71
--- NOTE | 2016-11-20 08:22 | Emergency Room Report ---
History of Present Illness General Chief Complaint: General Complaint Source: Patient Present Illness HPI 21YOF walk-in with request for "work clearance note" Was treated for UTI recently Work HR wouldnt let her return unless she "followed up". Feels better after Abx No complaints Allergies: Coded Allergies: No Known Allergies (Unverified , 12/09/13) Patient History Past Medical History: none Past Surgical History: none Pertinent Family History: none Social History: Denies: alcohol use, drug use, smoking Now: No Immunizations: UTD Reviewed Nursing Documentation: PMH: Agreed, PSxH: Agreed Nursing Documentation-PMH Hx Cardiac Problems: No Hx Hypertension: No Hx Pacemaker: No Hx Asthma: Yes Hx COPD: Yes Hx Diabetes: No Hx Cancer: No Hx Gastrointestinal Problems: Yes - fibroids Hx Dialysis: No Hx Cerebrovascular Accident: No Hx Seizures: No Review of Systems All Other Systems: negative except mentioned in HPI Physical Exam Vital Signs Date Time Temp Pulse Resp B/P Pulse Ox O2 Delivery O2 Flow Rate FiO2 11/20/16 08:01 97.9 82 20 114/71 100 Room Air Sp02 EP Interpretation: reviewed, normal General Appearance: normal inspection, well appearing, no apparent distress, alert Head: atraumatic ENT: normal ENT inspection, hearing grossly normal, normal voice Neck: normal inspection, full range of motion, supple, no bony tend Respiratory: normal inspection, lungs clear, normal breath sounds, no respiratory distress, no retraction, no wheezing Cardiovascular #1: regular rate, rhythm, no edema Gastrointestinal: normal inspection, normal bowel sounds, non tender, soft, no guarding, no hernia Genitourinary: no CVA tenderness Musculoskeletal: normal inspection, back normal, normal range of motion, Oren' s Sign negative Neurologic: normal inspection, alert, oriented x3, responsive, operating room manager III-XII nml as tested, motor strength/tone normal, speech normal Psychiatric: normal inspection, judgement/insight normal, mood/affect normal Skin: normal inspection, normal color, no rash Medical Decision Making Diagnostic Impression: Primary Impression: UTI (urinary tract infection) Qualified Codes: N30.00 - Acute cystitis without hematuria Additional Impression: Follow up ER Course Cleared for return to work Documentation provided Last Vital Signs Date Time Temp Pulse Resp B/P Pulse Ox O2 Delivery O2 Flow Rate FiO2 11/20/16 08:01 97.9 82 20 114/71 100 Room Air Status: improved Disposition: HOME, SELF-CARE Condition: Improved Additional Instructions: - clear to return to work as soon as possible MILLIE SMILEY M.D. Nov 20, 2016 08:22
== END 2016-11-20 08:21 | disposition home or self-care (01) ==
LOC: EMR 08:20
DX: N39.0 Urinary tract infection, site not specified (principal); J44.9 Chronic obstructive pulmonary disease, unspecified
CPT/HCPCS: 99282

== ENCOUNTER 2016-11-28 10:55 | Emergency (ER) | payer SELFPAY ==
[~2016-11-28] VITALS: Ht 160 cm; Wt 72.6 kg
[2016-11-28 11:15] VITALS: BP 137/83
[2016-11-28] MEDS ORDERED: ALPRAZOLAM0.25 MG ORAL (11:21)
[2016-11-28 11:28] VITALS: BP 137/83
--- NOTE | 2016-11-28 13:25 | Emergency Room Report ---
History of Present Illness General Chief Complaint: General Complaint Source: Patient, Medical Record Present Illness HPI Patient presents emergency department today complaining of acute anxiety. Patient has a history of anxiety. She states that she's under a lot of stress at work. She states that she feels very anxious and has difficulty sleeping. She denies any palpitations. She denies any suicidal homicidal ideation. She denies any auditory or visual hallucinations. She is seeking counseling. No other complaints were noted. No other modifying factors. No other associated signs and symptoms. No other complaints were noted. Allergies: Coded Allergies: No Known Allergies (Unverified , 12/09/13) Patient History Past Medical History: asthma, COPD, other - Fibroids Past Surgical History: none Pertinent Family History: none Social History: Denies: alcohol use, drug use, smoking Last Menstrual Period: 11/01/16 Now: No : 0 Para: 0 Reviewed Nursing Documentation: PMH: Agreed, PSxH: Agreed Nursing Documentation-PMH Hx Cardiac Problems: No Hx Hypertension: No Hx Pacemaker: No Hx Asthma: Yes Hx COPD: Yes Hx Diabetes: No Hx Cancer: No Hx Gastrointestinal Problems: Yes - fibroids Hx Dialysis: No Hx Cerebrovascular Accident: No Hx Seizures: No Review of Systems All Other Systems: negative except mentioned in HPI Physical Exam Vital Signs Date Time Temp Pulse Resp B/P Pulse Ox O2 Delivery O2 Flow Rate FiO2 11/28/16 11:05 99.0 99 16 137/83 100 Room Air Sp02 EP Interpretation: reviewed, normal General Appearance: normal inspection, well appearing, no apparent distress, alert Head: atraumatic Eyes: bilateral eye normal inspection ENT: normal ENT inspection, hearing grossly normal, normal voice Neck: normal inspection, full range of motion, supple, no bony tend Respiratory: normal inspection, lungs clear, normal breath sounds, no respiratory distress, no retraction, no wheezing Cardiovascular #1: regular rate, rhythm, no edema Gastrointestinal: normal inspection, normal bowel sounds, non tender, soft, no guarding, no hernia Genitourinary: no CVA tenderness Musculoskeletal: normal inspection, back normal, normal range of motion Neurologic: normal inspection, alert, responsive, speech normal Psychiatric: normal inspection, judgement/insight normal, anxious Skin: normal inspection, normal color, no rash Medical Decision Making Diagnostic Impression: Primary Impression: Anxiety ER Course Patient presents emergency department today complaining of anxiety. Differential diagnoses include worsening anxiety, depression, schizophrenia, stress reaction just to name a few. Patient's exam is consistent with anxiety and stress reaction. I felt the patient would benefit from medications and outpatient counseling. Recommend follow up with [facility]. Patient is advised to follow up with primary doctor in 2-3 days and return the emergency room for any worsening symptoms and as needed. Last Vital Signs Date Time Temp Pulse Resp B/P Pulse Ox O2 Delivery O2 Flow Rate FiO2 11/28/16 11:28 99.0 16 137/83 100 Room Air 11/28/16 11:05 99 Status: improved Disposition: HOME, SELF-CARE Condition: Stable Scripts Alprazolam* (XANAX*) 0.25 Mg Tablet 0.25 MG ORAL TID Y for For Anxiety, #20 TAB Prov: GASTON WHITMORE M.D. 11/28/16 Referrals: NOT CHOSEN [facility]/,REFERRING (PCP) Departure Forms: Return to Work Return to Work Date: Dec 01, 2016 Patient Instructions: Stress and Stress Management GASTON WHITMORE M.D. Nov 28, 2016 13:25
== END 2016-11-28 11:50 | disposition home or self-care (01) ==
LOC: EMR 11:50
DX: F41.9 Anxiety disorder, unspecified (principal); J44.9 Chronic obstructive pulmonary disease, unspecified
CPT/HCPCS: 99283

== ENCOUNTER 2017-01-27 19:42 | Emergency (ER) | payer SELFPAY ==
[~2017-01-27] VITALS: Ht 160 cm; Wt 72.6 kg
[~2017-01-27 19:42] MED LIST changes: +ALPRAZOLAM0.25 MG ORAL
[2017-01-27 20:38] VITALS: BP 108/60
[2017-01-27] MEDS ORDERED: Morphine Sulfate 4mg/ml Inj IVP ONE (21:30)
--- NOTE | 2017-01-27 21:49 | Emergency Room Report ---
History of Present Illness General Chief Complaint: Vaginal Source: Patient Present Illness HPI 21-year-old female presents ED complaining of lower abdominal pain and vaginal bleeding. Patient states she has history of fibroids. States her period started 2 days ago. Is very heavy. Pain is a 6/10, dull, nonradiating. Denies fevers or chills. Denies nausea or vomiting. No other aggravating relieving factors. Denies any other associated symptoms Allergies: Coded Allergies: No Known Allergies (Unverified , 12/09/13) Patient History Past Medical History: asthma, COPD, other - fibroids Past Surgical History: none Pertinent Family History: none Social History: Denies: smoking, alcohol use, drug use Last Menstrual Period: TODAY Immunizations: UTD Reviewed Nursing Documentation: PMH: Agreed, PSxH: Agreed Nursing Documentation-PMH Hx Cardiac Problems: No Hx Hypertension: No Hx Pacemaker: No Hx Asthma: Yes Hx COPD: Yes Hx Diabetes: No Hx Cancer: No Hx Gastrointestinal Problems: Yes - fibroids Hx Dialysis: No Hx Cerebrovascular Accident: No Hx Seizures: No Review of Systems All Other Systems: negative except mentioned in HPI Physical Exam Vital Signs Date Time Temp Pulse Resp B/P (MAP) Pulse Ox O2 Delivery O2 Flow Rate FiO2 01/27/17 20:32 98.2 98 20 108/60 98 Room Air Sp02 EP Interpretation: reviewed, normal General Appearance: no apparent distress, alert, GCS 15, non-toxic Head: normocephalic, atraumatic Eyes: bilateral eye normal inspection, bilateral eye PERRL ENT: hearing grossly normal, normal pharynx, no angioedema, normal voice Neck: full range of motion, supple/symm/no masses Respiratory: chest non-tender, lungs clear, normal breath sounds, speaking full sentences Cardiovascular #1: regular rate, rhythm, no edema Cardiovascular #2: 2+ carotid (R), 2+ carotid (L), 2+ radial (R), 2+ radial (L) , 2+ dorsalis pedis (R), 2+ dorsalis pedis (L) Gastrointestinal: normal bowel sounds, non tender, soft, non-distended, no guarding, no rebound Rectal: deferred Genitourinary: normal inspection, no CVA tenderness Musculoskeletal: back normal, gait/station normal, normal range of motion, non- tender Neurologic: alert, oriented x3, responsive, motor strength/tone normal, sensory intact, speech normal Psychiatric: judgement/insight normal, memory normal, mood/affect normal, no suicidal/homicidal ideation Reflexes: 3+ bicep (R), 3+ bicep (L), 3+ tricep (R), 3+ tricep (L), 3+ knee (R) , 3+ knee (L) Skin: normal color, no rash, warm/dry, well hydrated Lymphatic: no adenopathy Medical Decision Making Diagnostic Impression: Primary Impression: Fibroid Qualified Codes: D25.9 - Leiomyoma of uterus, unspecified Additional Impressions: Vaginal bleeding UTI (urinary tract infection) Qualified Codes: N39.0 - Urinary tract infection, site not specified ER Course Hospital Course 21-year-old F presents to ED with vaginal bleeding, abd pain Differential diagnosis includes- ovarian cyst, torsion, ectopic , DUB Clinical course Patient placed on stretcher. After initial history and physical I ordered labs , IV fluids, pain medications Labs - no leukocytosis, Hb/Hct stable, electrolytes ok, UA + bacteria Patient or to has known diagnosis of fibroids no additional imaging required at this time. Hemoglobin and hematocrit stable Will treat for UTI. Will prescribe antibiotics. Patient will followup with her [employer] I feel this is a highly complex case requiring extensive working including EKG/ Rhythm strip, Xray/CT/US, Blood/urine lab work, repeat exams while in ED, and administration of strong opiates/narcotics for pain control, admission to hospital or close patient follow up. Diagnosis - fibroids, vaginal bleeding, UTI Stable and discharged to home with Rx Keflex, tylenol #3. Followup with PMD. Return to ED if symptoms recur or worsen Labs Test 01/27/17 22:26 01/27/17 22:29 White Blood Count 7.1 K/UL (4.8-10.8) Red Blood Count 3.64 M/UL (4.20-5.40) Hemoglobin 11.3 G/DL (12.0-16.0) Hematocrit 33.2 % (37.0-47.0) Mean Corpuscular Volume 91 FL (80-99) Mean Corpuscular Hemoglobin 31.0 PG (27.0-31.0) Mean Corpuscular Hemoglobin Concent 34.0 G/DL (32.0-36.0) Red Cell Distribution Width 12.0 % (11.6-14.8) Platelet Count 203 K/UL (150-450) Mean Platelet Volume 6.9 FL (6.5-10.1) Neutrophils (%) (Auto) 56.3 % (45.0-75.0) Lymphocytes (%) (Auto) 28.9 % (20.0-45.0) Monocytes (%) (Auto) 11.8 % (1.0-10.0) Eosinophils (%) (Auto) 1.8 % (0.0-3.0) Basophils (%) (Auto) 1.2 % (0.0-2.0) Prothrombin Time 10.4 SEC (9.30-11.50) Prothromb Time International Ratio 1.0 (0.9-1.1) Activated Partial Thromboplast Time 27 SEC (23-33) Sodium Level 139 mEQ/L (135-145) Potassium Level 4.8 mEQ/L (3.4-4.9) Chloride Level 104 mEQ/L (98-107) Carbon Dioxide Level 23 mEQ/L (20-30) Anion Gap 12 (5-15) Blood Urea Nitrogen 12 mg/dL (7-23) Creatinine 0.8 mg/dL (0.5-0.9) Estimat Glomerular Filtration Rate > 60 mL/min (>60) Glucose Level 88 mg/dL (74-106) Calcium Level 8.7 mg/dL (8.6-10.2) Total Bilirubin 0.2 mg/dL (0.0-1.2) Aspartate Amino Transf (AST/SGOT) 30 U/L (5-40) Alanine Aminotransferase (ALT/SGPT) 21 U/L (3-33) Alkaline Phosphatase 54 U/L (35-104) Total Protein 6.4 g/dL (6.6-8.7) Albumin 3.6 g/dL (3.5-5.2) Globulin 2.8 g/dL Albumin/Globulin Ratio 1.2 (1.0-2.7) Lipase 52 U/L (< 60) Urine Color Brown Urine Appearance Slightly cloudy Urine pH 5 (4.5-8.0) Urine Specific [place] 1.020 (1.005-1.035) Urine Protein 3+ (NEGATIVE) Urine Glucose (UA) Negative (NEGATIVE) Urine Ketones 1+ (NEGATIVE) Urine Occult Blood 5+ (NEGATIVE) Urine Nitrite Positive (NEGATIVE) Urine Bilirubin Negative (NEGATIVE) Urine Urobilinogen 1 MG/DL (0.0-1.0) Urine Leukocyte Esterase 2+ (NEGATIVE) Urine RBC Tntc /HPF (0 - 2) Urine WBC 10-15 /HPF (0 - 2) Urine Squamous Epithelial Cells Few /LPF (NONE/OCC) Urine Bacteria Moderate /HPF (NONE) Urine HCG, Qualitative Negative Last Vital Signs Date Time Temp Pulse Resp B/P (MAP) Pulse Ox O2 Delivery O2 Flow Rate FiO2 01/27/17 20:38 98.2 98 20 108/60 98 Room Air Status: improved Disposition: HOME, SELF-CARE Condition: Stable Scripts Acetaminophen With Codeine (T#3) (TYLENOL #3 TAB*) Y Tab 1 TAB ORAL Q8H Y for For Pain, #20 TAB Prov: MARIA FERNANDA SANTIZO M.D. 01/27/17 Cephalexin* (KEFLEX*) 500 Mg Capsule 500 MG ORAL Q6H, #28 CAP 0 Refills Prov: MARIA FERNANDA SANTIZO M.D. 01/27/17 MARIA FERNANDA SANTIZO M.D. Jan 27, 2017 21:49
[2017-01-27 22:46] LABS: BASOPHILS % (AUTO) 1.2 % (0.0-2.0); EOSINOPHILS % (AUTO) 1.8 % (0.0-3.0); LYMPHOCYTES % (AUTO) 28.9 % (20.0-45.0); MEAN CORPUSCULAR VOLUME 91 FL (80-99); MEAN PLATELET VOLUME 6.9 FL (6.5-10.1); MONOCYTES % (AUTO) 11.8 % (1.0-10.0); NEUTROPHILS % (AUTO) 56.3 % (45.0-75.0); PLATELET COUNT 203 K/UL (150-450); RED BLOOD COUNT 3.64 M/UL (4.20-5.40); WHITE BLOOD COUNT 7.1 K/UL (4.8-10.8)
[2017-01-27 22:47] LABS: APPEARANCE,URINE SLIGHTLY CLOUDY; KETONES,URINE 1+ (NEGATIVE); LEUKOCYTE ESTERASE ,URINE 2+ (NEGATIVE); NITRITE,URINE POSITIVE (NEGATIVE); PH,URINE 5 (4.5-8.0); PROTEIN,URINE 3+ (NEGATIVE); UROBILINOGEN,URINE 1 MG/DL (0.0-1.0)
[2017-01-27 22:52] LABS: BACTERIA,URINE MODERATE /HPF; RBC,URINE TNTC /HPF (0 - 2); SQUAMOUS EPITHELIAL CELL,UR FEW /LPF (NONE/OCC)
[2017-01-27 23:00] LABS: PROTHROMBIN TIME 10.4 SEC (9.30-11.50)
[2017-01-27 23:15] LABS: ALANINE AMINOTRANSFERASE 21 U/L (3-33); ALBUMIN/GLOBULIN RATIO 1.2 (1.0-2.7); ANION GAP 12 (5-15); ASPARTATE AMINO TRANSFERASE 30 U/L (5-40); CALCIUM 8.7 mg/dL (8.6-10.2); CARBON DIOXIDE 23 mEQ/L (20-30); CHLORIDE 104 mEQ/L (98-107); CREATININE 0.8 mg/dL (0.5-0.9); GLOMERULAR FILTRATION RATE > 60 mL/min (>60); HEMOLYSIS 248; LIPASE 52 U/L (< 60); POTASSIUM 4.8 mEQ/L (3.4-4.9); SODIUM 139 mEQ/L (135-145); TOTAL PROTEIN 6.4 g/dL (6.6-8.7)
[2017-01-27] MEDS ORDERED: ACETAMINOPHEN-1 EAC1 ORAL (23:52)
[2017-01-27] MEDS ORDERED: KEFLEX500 MG ORAL (23:52)
[2017-01-28 00:12] VITALS: BP 108/60
== END 2017-01-28 00:12 | disposition home or self-care (01) ==
LOC: EMR 21:18
DX: D25.9 Leiomyoma of uterus, unspecified (principal); N39.0 Urinary tract infection, site not specified; N93.9 Abnormal uterine and vaginal bleeding, unspecified; J44.9 Chronic obstructive pulmonary disease, unspecified
CPT/HCPCS: 36415; 80053; 81003; 81025; 83690; 85025; 85610; 85730; 86850; 86900; 86901; 87086; 96361; 96374; 99284; J2270

== ENCOUNTER → 2017-04-16 | Emergency (ER) | payer SELFPAY ==
[~2017-04-16] VITALS: Ht 160 cm; Wt 72.6 kg
[~2017-04-16] MED LIST changes: +ACETAMINOPHEN-1 EAC1 ORAL
[2017-04-16 11:08] VITALS: BP 122/65
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
[2017-04-16 13:26] VITALS: BP 122/65
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
--- NOTE | 2017-04-17 05:02 | Diagnostic Imaging Report ---
Indications: Pain Technique: 3 views of the right hand Comparison: None Findings: No acute fractures. No dislocations. Joint spaces are preserved. No radiopaque foreign body. Normal mineralization. Impression: No acute process This agrees with the preliminary interpretation provided by the emergency room physician
== END | disposition home or self-care (01) ==
LOC: EMR 11:10
DX: R51 Headache (principal); M79.644 Pain in right finger(s); V09.09XA Pedestrian injured in nontraffic accident involving other motor vehicles, initial encounter; Y93.55 Activity, bike riding; Y92.89 Other specified places as the place of occurrence of the external cause; J44.9 Chronic obstructive pulmonary disease, unspecified
CPT/HCPCS: 70450; 99284

== ENCOUNTER 2017-09-09 17:43 | Emergency (ER) | payer MEDICAID ==
[~2017-09-09] VITALS: Ht 157.5 cm; Wt 73.9 kg
[2017-09-09 18:12] VITALS: BP 101/61
[2017-09-09 18:43] LABS: BASOPHILS % (AUTO) 2.3 % (0.0-2.0); EOSINOPHILS % (AUTO) 1.8 % (0.0-3.0); HEMATOCRIT 39.6 % (37.0-47.0); HEMOGLOBIN 13.2 G/DL (12.0-16.0); MEAN CORPUSCULAR VOLUME 89 FL (80-99); MONOCYTES % (AUTO) 10.9 % (1.0-10.0); PLATELET COUNT 231 K/UL (150-450); RED BLOOD COUNT 4.44 M/UL (4.20-5.40); RED CELL DISTRIBUTION WIDTH 11.1 % (11.6-14.8); WHITE BLOOD COUNT 5.8 K/UL (4.8-10.8)
[2017-09-09] MEDS ORDERED: Ketorolac 30mg Inj IV ONE (18:45)
[2017-09-09] MEDS ORDERED: Morphine Sulfate 4mg/ml Inj IVP ONE (18:45)
[2017-09-09 18:55] LABS: APPEARANCE,URINE CLOUDY; COLOR,URINE RED
[2017-09-09 18:56] LABS: ANION GAP 7 mmol/L (5-15); BLOOD UREA NITROGEN 14 mg/dL (7-18); CALCIUM 9.1 MG/DL (8.5-10.1); CARBON DIOXIDE 28 MMOL/L (21-32); CHLORIDE 103 MMOL/L (98-107); CREATININE 0.8 MG/DL (0.55-1.30); POTASSIUM 4.3 MMOL/L (3.5-5.1); SODIUM 137 MMOL/L (136-145)
[2017-09-09 19:01] LABS: ALANINE AMINOTRANSFERASE 21 U/L (12-78); ALBUMIN 3.8 G/DL (3.4-5.0); ALKALINE PHOSPHATASE 68 U/L (46-116); ASPARTATE AMINO TRANSFERASE 14 U/L (15-37); BILIRUBIN,TOTAL 0.2 MG/DL (0.2-1.0)
[2017-09-09 19:02] LABS: BILIRUBIN, URINE NEGATIVE (NEGATIVE); GLUCOSE, URINE (UA) NEGATIVE (NEGATIVE); KETONES,URINE NEGATIVE (NEGATIVE); LEUKOCYTE ESTERASE ,URINE 2+ (NEGATIVE); NITRITE,URINE NEGATIVE (NEGATIVE); PH,URINE 8 (4.5-8.0); PROTEIN,URINE 3+ (NEGATIVE); UROBILINOGEN,URINE NORMAL MG/DL (0.0-1.0)
--- NOTE | 2017-09-09 19:02 | Emergency Room Report ---
History of Present Illness General Chief Complaint: Abdominal Pain Present Illness HPI 22-year-old female patient presents to ER complaining of abdominal pain secondary to fibroids. Patient reports history of uterine fibroids. Patient reports that she has not followed up with [facility] specialist. Patient reports blood in her urine. Patient reports she is currently on her menstrual period patient denies dizziness or lost consciousness. Patient denies fainting. Patient denies fever, chest pain, shortness of breath. Patient denies dysuria vaginal discharge. She reports pain symptoms increase, states she tried to treat pain with marijuana earlier which temporarily relieved pain symptoms. Allergies: Coded Allergies: No Known Allergies (Unverified , 12/09/13) Patient History Past Medical History: see triage record Last Menstrual Period: 09/08/17 Reviewed Nursing Documentation: PMH: Agreed; PSxH: Agreed Nursing Documentation-PMH Hx Cardiac Problems: No Hx Hypertension: No Hx Pacemaker: No Hx Asthma: Yes Hx COPD: Yes Hx Diabetes: No Hx Cancer: No Hx Gastrointestinal Problems: Yes - fibroids Hx Dialysis: No Hx Cerebrovascular Accident: No Hx Seizures: No Review of Systems All Other Systems: negative except mentioned in HPI Physical Exam Vital Signs Date Time Temp Pulse Resp B/P (MAP) Pulse Ox O2 Delivery O2 Flow Rate FiO2 09/09/17 17:54 98.2 98 18 101/61 96 Room Air 98.2 Sp02 EP Interpretation: reviewed, normal General Appearance: well appearing, alert, GCS 15, non-toxic, mild distress Head: normocephalic, atraumatic ENT: hearing grossly normal, normal pharynx, no angioedema, normal voice, uvula midline, moist mucus membranes Respiratory: lungs clear, normal breath sounds, no rhonchi, no respiratory distress, no accessory muscle use, no wheezing, speaking full sentences Cardiovascular #1: regular rate, rhythm, no edema Gastrointestinal: soft, no mass, non-distended, no guarding, no rebound, tenderness - suprapubic, other - negative Rovsing, negative Dexter Genitourinary: no CVA tenderness Musculoskeletal: back normal, digits/nails normal, gait/station normal, normal range of motion, non-tender Neurologic: alert, oriented x3, responsive, motor strength/tone normal, sensory intact Psychiatric: mood/affect normal Skin: no rash Medical Decision Making PA Attestation Dr. Rodriguez is my supervising Physician whom patient management has been discussed with. Diagnostic Impression: Primary Impression: Uterine fibroid Additional Impression: UTI (urinary tract infection) ER Course Pt presents to ED c/o fibroid pain. DDX considered but are not limited to UTI, , abnormal uterine bleeding , fibroids, hemorrhagic cyst, ovarian torsion, menstrual cramps. VITAL SIGNS are WNL, patient is afebrile Ordered CBC, CMP, UA, Urine , IV NS and pelvic US, pain medication. ER COURSE: Patient resting comfortably, in no acute distress, nontoxic appearing. Patient reports pain symptoms resolved since onset. CBC and CMP unremarkable UA results show numerous RBCs, likely due to menstrual period. WBCs, leukocyte esterase, and bacteria present, few epithelial cells, low suspicion for UTI, patient asx. Urine negative Discuss results with patient. Provided patient with antibiotics to cover for possible UTI, take medication if UTI symptoms present including but not limited to fever, vomiting, flank pain , dysuria. US shows 8 mm uterine fibroid, likely cause of pain. Follow-up with [facility] specialist to discuss fibroid treatment and surgical removal. Patient reports pain symptoms improved, resting comfortably, nontoxic appearing , in no acute distress. Return to ER for signs of dizziness, fainting, syncope. DISCHARGE: -Rx provided for Tylenol for pain -Rx provided for Keflex At this time pt. is stable for d/c to home. At this time patient is resting comfortably, in no acute distress, nontoxic appearing, smiling and talking without difficulty. Will provide printed patient care instructions, and any necessary prescriptions. Patient instructed to follow with OBGYN for further treatment and referral as needed. Care plan and follow up instructions have been discussed with the patient prior to discharge. Patient reports understanding and agreement to treatment plan. Patient questions asked and answered. ER precautions given, patient instructed to return to ER immediately for any new or worsening of symptoms. - Please note that this Emergency Department Report was dictated using [employer] ecology professor technology software, occasionally this can lead to erroneous entry secondary to interpretation by the dictation equipment. Labs Test 09/09/17 18:20 White Blood Count 5.8 K/UL (4.8-10.8) Red Blood Count 4.44 M/UL (4.20-5.40) Hemoglobin 13.2 G/DL (12.0-16.0) Hematocrit 39.6 % (37.0-47.0) Mean Corpuscular Volume 89 FL (80-99) Mean Corpuscular Hemoglobin 29.7 PG (27.0-31.0) Mean Corpuscular Hemoglobin Concent 33.3 G/DL (32.0-36.0) Red Cell Distribution Width 11.1 % (11.6-14.8) Platelet Count 231 K/UL (150-450) Mean Platelet Volume 6.7 FL (6.5-10.1) Neutrophils (%) (Auto) 55.0 % (45.0-75.0) Lymphocytes (%) (Auto) 30.0 % (20.0-45.0) Monocytes (%) (Auto) 10.9 % (1.0-10.0) Eosinophils (%) (Auto) 1.8 % (0.0-3.0) Basophils (%) (Auto) 2.3 % (0.0-2.0) Urine Color Red Urine Appearance Cloudy Urine pH 8 (4.5-8.0) Urine Specific [place] 1.010 (1.005-1.035) Urine Protein 3+ (NEGATIVE) Urine Glucose (UA) Negative (NEGATIVE) Urine Ketones Negative (NEGATIVE) Urine Occult Blood 5+ (NEGATIVE) Urine Nitrite Negative (NEGATIVE) Urine Bilirubin Negative (NEGATIVE) Urine Urobilinogen Normal MG/DL (0.0-1.0) Urine Leukocyte Esterase 2+ (NEGATIVE) Urine RBC Tntc /HPF (0 - 2) Urine WBC 10-15 /HPF (0 - 2) Urine Squamous Epithelial Cells Few /LPF (NONE/OCC) Urine Bacteria Moderate /HPF (NONE) Urine HCG, Qualitative Negative (NEGATIVE) Sodium Level 137 MMOL/L (136-145) Potassium Level 4.3 MMOL/L (3.5-5.1) Chloride Level 103 MMOL/L (98-107) Carbon Dioxide Level 28 MMOL/L (21-32) Anion Gap 7 mmol/L (5-15) Blood Urea Nitrogen 14 mg/dL (7-18) Creatinine 0.8 MG/DL (0.55-1.30) Estimat Glomerular Filtration Rate > 60 mL/min (>60) Glucose Level 95 MG/DL (74-106) Calcium Level 9.1 MG/DL (8.5-10.1) Total Bilirubin 0.2 MG/DL (0.2-1.0) Aspartate Amino Transf (AST/SGOT) 14 U/L (15-37) Alanine Aminotransferase (ALT/SGPT) 21 U/L (12-78) Alkaline Phosphatase 68 U/L (46-116) Total Protein 7.7 G/DL (6.4-8.2) Albumin 3.8 G/DL (3.4-5.0) Globulin 3.9 g/dL Albumin/Globulin Ratio 1.0 (1.0-2.7) Lipase 171 U/L (73-393) CT/MRI/US Diagnostic Results CT/MRI/US Diagnostic Results : Imaging Test Ordered: Pelvic US Impression Probable 8 mm subserosal fundal fibroid. Uterus is otherwise unremarkable. Normal endometrium. No sonographic findings to suggest ovarian torsion. No adnexal masses or pelvic free fluid. Last Vital Signs Date Time Temp Pulse Resp B/P (MAP) Pulse Ox O2 Delivery O2 Flow Rate FiO2 09/09/17 19:00 98.2 09/09/17 18:12 76 18 101/61 96 Room Air Disposition: HOME, SELF-CARE Condition: Stable Scripts Cephalexin* (KEFLEX*) 500 Mg Capsule 500 MG ORAL EVERY 12 HOURS, #14 CAP 0 Refills Prov: Jeremie Obregon 09/09/17 Acetaminophen* (TYLENOL EXTRA STRENGTH*) 500 Mg Tablet 500 MG ORAL Q8H PRN for Prn Headache/Temp > 101, #30 TAB 0 Refills Prov: Jeremie Obregon 09/09/17 Patient Instructions: Urinary Tract Infection, [id number], Uterine Fibroids, [id number] Additional Instructions: Followup with primary care provider and request referral to migration specialist. Take medications as directed. Patient questions asked and answered. ER precautions given, patient instructed to return to ER immediately for any new or worsening of symptoms. Jeremie Obregon September 09, 2017 19:02
[2017-09-09] MEDS ORDERED: TYLENOL EXTRA500 MG ORAL (21:31)
[2017-09-09] MEDS ORDERED: CEPHALEXIN500 MG ORAL (21:35)
[2017-09-09 21:48] VITALS: BP 118/71
[2017-09-09 21:49] VITALS: BP 118/71
--- NOTE | 2017-09-10 10:53 | Diagnostic Imaging Report ---
Indication: Pain. Negative test documented in the electronic medical record at the time of the study. Technique: Transabdominal and endovaginal pelvic ultrasound was performed. Comparison: 06/05/2016. Findings: The uterus measures 6.6 x 4.7 x 3.2 cm. The posterior fundus of the uterus there is a hypoechoic lesion that measures approximately 0.8 cm in diameter. This may represent a fibroid. The Endometrium measures approximately 6.4 mm in thickness. No focal endometrial abnormality identified. The right ovary measures 2.2 x 2.0 x 8.2 cm/2 mL. The left ovary measures 1.2 x 1 x 0.6 cm/0.4 mL. Doppler flow noted to the bilateral ovaries. Some small follicular ovarian cyst noted on the right. No free pelvic fluid. IMPRESSION: Hypoechoic subcentimeter mass at the posterior fundus of the uterus may represent a fibroid. Clinical correlation recommended. No adnexal masses or free pelvic fluid identified. No evidence to suggest ovarian torsion. This corresponds with the statrad preliminary report.
== END 2017-09-09 21:49 | disposition home or self-care (01) ==
LOC: EMR 18:25
DX: D25.9 Leiomyoma of uterus, unspecified (principal); N39.0 Urinary tract infection, site not specified; J44.9 Chronic obstructive pulmonary disease, unspecified
CPT/HCPCS: 36415; 76830; 76856; 80053; 81003; 81025; 83690; 85025; 87086; 96374; 96375; 99284; J1885; J2270; J2405

== ENCOUNTER 2018-03-09 11:23 | Emergency (ER) | payer MEDICAID ==
[~2018-03-09] VITALS: Ht 157.5 cm; Wt 70.8 kg
[~2018-03-09 11:23] MED LIST changes: +TYLENOL EXTRA500 MG ORAL
[2018-03-09 11:33] VITALS: BP 109/67
[2018-03-09 12:01] LABS: APPEARANCE,URINE CLEAR; BILIRUBIN, URINE NEGATIVE (NEGATIVE); COLOR,URINE PALE YELLOW; GLUCOSE, URINE (UA) NEGATIVE (NEGATIVE); KETONES,URINE NEGATIVE (NEGATIVE); LEUKOCYTE ESTERASE ,URINE NEGATIVE (NEGATIVE); NITRITE,URINE NEGATIVE (NEGATIVE); PH,URINE 6 (4.5-8.0); PROTEIN,URINE NEGATIVE (NEGATIVE); UROBILINOGEN,URINE NORMAL MG/DL (0.0-1.0)
[2018-03-09] MEDS ORDERED: Fluconazole 100mg tab ORAL ONE (13:30)
--- NOTE | 2018-03-09 13:31 | Emergency Room Report ---
History of Present Illness General Chief Complaint: Female Urogenital Problems Source: Patient Present Illness HPI Patient presents with thick white d/c. She was treated for a UTI several weeks ago. Was told to use OTC meds for white d/c. She got Monistat but has not been using it regularly. She states it doesn't work for her. She denies dysuria at this time. H/O fibroids H/O genital herpes - states not outbreak at this time H/O PID - denies suprapubic pain or fever No NVD, chest pain, dyspnea, joint pain, headache. She has a rash around her neck after wearing a necklace. This is itchy and slightly red. Allergies: Coded Allergies: No Known Allergies (Unverified , 12/09/13) Patient History Past Medical History: see triage record Past Surgical History: T+A Social History: Reports: smoking, alcohol use Social History Narrative at home Last Menstrual Period: 02/13/18 Reviewed Nursing Documentation: PMH: Agreed; PSxH: Agreed Nursing Documentation-PMH Hx Cardiac Problems: No Hx Hypertension: No Hx Pacemaker: No Hx Asthma: Yes Hx COPD: Yes Hx Diabetes: No Hx Cancer: No Hx Gastrointestinal Problems: Yes - fibroids Hx Dialysis: No Hx Cerebrovascular Accident: No Hx Seizures: No Review of Systems All Other Systems: negative except mentioned in HPI Physical Exam Vital Signs Date Time Temp Pulse Resp B/P (MAP) Pulse Ox O2 Delivery O2 Flow Rate FiO2 03/09/18 11:25 98.2 101 18 109/67 98 Room Air Sp02 EP Interpretation: reviewed, normal General Appearance: well appearing, no apparent distress, GCS 15 Head: normocephalic, atraumatic Eyes: bilateral eye normal inspection, bilateral eye PERRL ENT: hearing grossly normal, normal voice, moist mucus membranes Neck: full range of motion, supple Respiratory: lungs clear, no respiratory distress, speaking full sentences Gastrointestinal: normal inspection, normal bowel sounds, non tender, soft Genitourinary: adnexa normal, cervix normal, ext genitalia/vag normal, os closed, other - white d/c Musculoskeletal: digits/nails normal, gait/station normal, normal range of motion Neurologic: alert, oriented x3, normal gait, grossly normal Psychiatric: mood/affect normal Skin: warm/dry, other - slight inflammation/raised area in necklace distribution Medical Decision Making Diagnostic Impression: Primary Impression: Monilial vaginitis Additional Impression: Contact dermatitis Qualified Codes: L24.81 - Irritant contact dermatitis due to metals ER Course Patient with white vaginal d/c. DDX: yeast, bacterial vaginosis amongst others. Need to exclude UTI. Neck with evidence of contact dermatitis. UA clear. Preg neg. Wet mount with clue cells and allegedly no yeast. Clinically has vaginal monilia. Will treat. Patient stable for outpatient observation and treatment. Laboratory Tests Test 03/09/18 11:41 Urine Color Pale yellow Urine Appearance Clear Urine pH 6 (4.5-8.0) Urine Specific [place] 1.010 (1.005-1.035) Urine Protein Negative (NEGATIVE) Urine Glucose (UA) Negative (NEGATIVE) Urine Ketones Negative (NEGATIVE) Urine Blood Negative (NEGATIVE) Urine Nitrite Negative (NEGATIVE) Urine Bilirubin Negative (NEGATIVE) Urine Urobilinogen Normal MG/DL (0.0-1.0) Urine Leukocyte Esterase Negative (NEGATIVE) Urine HCG, Qualitative Negative (NEGATIVE) Microbiology Date/Time Source Procedure Growth Status 03/09/18 13:31 Vaginal Wet Prep - Final Complete Last Vital Signs Date Time Temp Pulse Resp B/P (MAP) Pulse Ox O2 Delivery O2 Flow Rate FiO2 03/09/18 11:33 98.2 101 18 109/67 98 Room Air Status: improved Disposition: HOME, SELF-CARE Condition: Improved Scripts Hydrocortisone Acetate 1% Onit (HYDROCORTISONE 1% OINT) Y Oint 1 APPLIC TP BID for rash on neck, #10 GM Prov: Yony Mendieta MD 03/09/18 Fluconazole (FLUCONAZOLE) 100 Mg Tablet 100 MG ORAL DAILY, #6 TAB 0 Refills Prov: Yony Mendieta MD 03/09/18 Referrals: NON PHYSICIAN (PCP) Yony Mendieta MD Mar 09, 2018 13:31
[2018-03-09] MEDS ORDERED: HYDROCORTISONE28 G2 TP (13:34)
[2018-03-09] MEDS ORDERED: FLUCONAZOLE100 MG ORAL (13:34)
[2018-03-09] MEDS ORDERED: NKM (13:49)
[2018-03-09 13:50] VITALS: BP 111/71
== END 2018-03-09 13:53 | disposition home or self-care (01) ==
LOC: EMR 13:08
DX: B37.3 Candidiasis of vulva and vagina (principal); L25.9 Unspecified contact dermatitis, unspecified cause; J44.9 Chronic obstructive pulmonary disease, unspecified
CPT/HCPCS: 81003; 81025; 87210; 99283

== ENCOUNTER 2019-06-02 16:46 | Emergency (ER) | payer MEDICAID ==
[~2019-06-02] VITALS: Ht 157.5 cm; Wt 74.8 kg
[~2019-06-02 16:46] MED LIST changes: +FLUCONAZOLE100 MG ORAL; +HYDROCORTISONE28 G2 TP
--- NOTE | 2019-06-02 17:18 | NUR ---
ED Nurse Note: URINE SENT TO LAB
[2019-06-02 17:20] VITALS: BP 121/85
[2019-06-02 17:53] LABS: APPEARANCE,URINE CLEAR; BILIRUBIN, URINE NEGATIVE (NEGATIVE); COLOR,URINE PALE YELLOW; GLUCOSE, URINE (UA) NEGATIVE (NEGATIVE); KETONES,URINE NEGATIVE (NEGATIVE); LEUKOCYTE ESTERASE ,URINE NEGATIVE (NEGATIVE); NITRITE,URINE NEGATIVE (NEGATIVE); PH,URINE 8 (4.5-8.0); PROTEIN,URINE NEGATIVE (NEGATIVE); UROBILINOGEN,URINE NORMAL MG/DL (0.0-1.0)
--- NOTE | 2019-06-02 18:01 | Emergency Room Report ---
History of Present Illness General Chief Complaint: Female Urogenital Problems Source: Patient Present Illness HPI 24-year-old female with no symptom past medical history other than recurrent bacterial vaginosis and yeast infection here complaining of foul odor discharge from the vaginal area x3 days after douching here complaining of worsening symptoms x1 day. Denies any dysuria or urinary frequency. Denies hematuria. Denies abdominal pain, nausea vomiting, fever and chills. Denies being sexually active in the past few days. Reports that was tested for sexually transmitted diseases 2 weeks ago and tested negative. Reports that she still with the same sexual partner. Allergies: Coded Allergies: No Known Allergies (Unverified , 12/09/13) Patient History Past Medical History: see triage record Past Surgical History: unable to obtain Pertinent Family History: none Last Menstrual Period: 05/26/2019 Now: No Immunizations: UTD Reviewed Nursing Documentation: PMH: Agreed; PSxH: Agreed Nursing Documentation-PMH Past Medical History: No Stated History Hx Cardiac Problems: No Hx Hypertension: No Hx Pacemaker: No Hx Asthma: Yes Hx COPD: Yes Hx Diabetes: No Hx Cancer: No Hx Gastrointestinal Problems: Yes - fibroids Hx Dialysis: No Hx Cerebrovascular Accident: No Hx Seizures: No Review of Systems All Other Systems: negative except mentioned in HPI Physical Exam Vital Signs Date Time Temp Pulse Resp B/P (MAP) Pulse Ox O2 Delivery O2 Flow Rate FiO2 06/02/19 17:02 98.4 88 16 121/85 (97) 97 Room Air Sp02 EP Interpretation: reviewed, normal General Appearance: no apparent distress, alert, GCS 15, non-toxic Head: normocephalic, atraumatic Eyes: bilateral eye normal inspection, bilateral eye PERRL ENT: hearing grossly normal, normal pharynx, no angioedema, normal voice Neck: full range of motion, supple/symm/no masses Respiratory: chest non-tender, lungs clear, normal breath sounds, no wheezing, speaking full sentences Cardiovascular #1: regular rate, rhythm, no edema, no murmur Gastrointestinal: normal bowel sounds, non tender, soft, non-distended, no guarding, no rebound Genitourinary: no CVA tenderness Musculoskeletal: back normal Neurologic: alert, motor strength/tone normal, oriented x3, sensory intact, responsive, speech normal Psychiatric: judgement/insight normal, memory normal, mood/affect normal, no suicidal/homicidal ideation Skin: no rash Lymphatic: no adenopathy Medical Decision Making PA Attestation All my diagnosis and treatment plans were reviewed ad discussed with my supervising physician Dr. Georges Diagnostic Impression: Primary Impression: Vaginitis ER Course 24-year-old female with no symptom past medical history other than recurrent bacterial vaginosis and yeast infection here complaining of foul odor discharge from the vaginal area x3 days after douching here complaining of worsening symptoms x1 day. Denies any dysuria or urinary frequency. Denies hematuria. Denies abdominal pain, nausea vomiting, fever and chills. Denies being sexually active in the past few days. Reports that was tested for sexually transmitted diseases 2 weeks ago and tested negative. Reports that she still with the same sexual partner. Ddx considered but are not limited to: UTI, bacterial vaginosis versus yeast infection versus chlamydia versus gonorrhea Vital signs: are WNL, pt. is afebrile H&PE are most consistent with: Vaginitis mostly secondary to BV and yeast infection ORDERS: UA, urine cx, urine , Flagyl, Diflucan ED INTERVENTIONS: None required at this time. DISCHARGE: At this time pt. is stable for d/c to home. Will provide printed patient care instructions, and any necessary prescriptions. Care plan and follow up instructions have been discussed with the patient prior to discharge. Patient take medication as directed, follow-up with primary care provider, avoid drinking alcohol while taking Flagyl, also to be seen by crystallographer for further evaluation. Also avoid douching. Last Vital Signs Date Time Temp Pulse Resp B/P (MAP) Pulse Ox O2 Delivery O2 Flow Rate FiO2 06/02/19 17:20 98.4 88 16 121/85 97 Room Air Disposition: HOME, SELF-CARE Condition: Stable Scripts Fluconazole (FLUCONAZOLE) 100 Mg Tablet 150 MG ORAL DAILY for 1 Day, #2 TAB 0 Refills Prov: Masood Gonzalez 06/02/19 Metronidazole* (FLAGYL*) 500 Mg Tablet 500 MG ORAL BID for 7 Days, #14 TAB Prov: Masood Gonzalez 06/02/19 Patient Instructions: Vaginitis Additional Instructions: Take medication as directed, follow-up with your crystallographer, increase oral hydration, wear cotton only underwear, if worsening symptoms return to the emergency room Masood Gonzalez Jun 02, 2019 18:01
[2019-06-02] MEDS ORDERED: METRONIDAZOLE500 MG ORAL (18:02)
[2019-06-02] MEDS ORDERED: FLUCONAZOLE100 MG ORAL (18:02)
[2019-06-02 18:15] VITALS: BP 127/88
--- NOTE | 2019-06-02 18:16 | NUR ---
ER DISCHARGE NOTE: Patient is cleared to be discharged per ERMD, pt is aox4, on room air, with stable vital signs. pt left without dc and prescription instructions. pt is able to ambulate with steady gait. pt took all belongings.
== END 2019-06-02 18:15 | disposition home or self-care (01) ==
LOC: EMR 17:01
DX: N76.0 Acute vaginitis (principal); J44.9 Chronic obstructive pulmonary disease, unspecified
CPT/HCPCS: 81003; 81025; Z7502; 99282

== ENCOUNTER 2020-02-07 07:44 | Emergency (ER) | payer MEDICAID ==
[~2020-02-07] VITALS: Ht 157.5 cm; Wt 77.1 kg
[2020-02-07 07:49] VITALS: BP 123/84
[2020-02-07] MEDS ORDERED: VENTOLIN HFA18 GM INH (07:53)
[2020-02-07 08:29] LABS: APPEARANCE,URINE CLEAR; BILIRUBIN, URINE NEGATIVE (NEGATIVE); GLUCOSE, URINE (UA) NEGATIVE (NEGATIVE); KETONES,URINE NEGATIVE (NEGATIVE); LEUKOCYTE ESTERASE ,URINE NEGATIVE (NEGATIVE); NITRITE,URINE NEGATIVE (NEGATIVE); PH,URINE 6 (4.5-8.0); PROTEIN,URINE NEGATIVE (NEGATIVE); UROBILINOGEN,URINE NORMAL MG/DL (0.0-1.0)
[2020-02-07 08:30] LABS: COLOR,URINE YELLOW
[2020-02-07] MEDS ORDERED: VALACYCLOVIR500 MG ORAL (08:33)
[2020-02-07] MEDS ORDERED: CEPHALEXIN500 MG ORAL (08:33)
[2020-02-07 08:49] VITALS: BP 118/76
--- NOTE | 2020-02-07 21:52 | Emergency Room Report ---
History of Present Illness General Chief Complaint: Female Urogenital Problems Source: Patient Present Illness HPI Patient is a 24-year-old female presents for increased dysuria as well as urinary frequency. Reports having some suprapubic abdominal pain. Denies any vomiting or flank pain. Denies any vaginal discharge. Reports having some foul odor. Denies any recent unprotected sexual intercourse. Allergies: Coded Allergies: No Known Allergies (Unverified , 12/09/13) COVID-19 Screening Contact w/high risk pt: No Experienced COVID-19 symptoms?: No COVID-19 Testing performed CLINICIAN ONCOLOGY: No Patient History Past Medical History: see triage record Last Menstrual Period: 01/29/20 Reviewed Nursing Documentation: PMH: Agreed; PSxH: Agreed Nursing Documentation-PMH Hx Cardiac Problems: No Hx Hypertension: No Hx Pacemaker: No Hx Asthma: Yes Hx COPD: No Hx Diabetes: No Hx Cancer: No Hx Gastrointestinal Problems: Yes - fibroids Hx Dialysis: No Hx Cerebrovascular Accident: No Hx Seizures: No Review of Systems All Other Systems: negative except mentioned in HPI Physical Exam Vital Signs Date Time Temp Pulse Resp B/P (MAP) Pulse Ox O2 Delivery O2 Flow Rate FiO2 02/07/20 07:49 97.7 100 19 123/84 98 Room Air General Appearance: well appearing, no apparent distress, alert, GCS 15 Head: normocephalic, atraumatic ENT: hearing grossly normal, normal voice Neck: full range of motion, supple Respiratory: no respiratory distress, speaking full sentences Cardiovascular #1: normal inspection Gastrointestinal: normal inspection, normal bowel sounds, non tender Genitourinary: no CVA tenderness Musculoskeletal: no calf tenderness Neurologic: alert, motor strength/tone normal, punch machine hand III-XII nml as tested, oriented x3, normal gait Psychiatric: normal inspection, mood/affect normal Skin: no rash Medical Decision Making Diagnostic Impression: Primary Impression: Medication refill ER Course Patient presented for dysuria. Differential diagnosis include was not limited to urinary tract infection, pelvic inflammatory disease, herpes simplex among others. Patient has a benign exam and does not appear to require any imaging or laboratory testing at this time. Patient's urinalysis did not show any evidence of infection at this time. Patient had some prior history of herpes and had run out of valacyclovir. Patient is given prescription for medications. Patient was advised outpatient sexually transmitted infection testing. She was advised to return if any worsening of condition or other concerns. The patient is advised to follow up with primary care doctor in 1-2 days. Patient is advised to return if any worsening condition or if any changes in status that are concerning. This report is dictated with [employer] mining consultant software which may occas ionally lead to discrepancies related to use of this software. Labs Test 02/07/20 07:53 Urine Color Yellow Urine Appearance Clear Urine pH 6 (4.5-8.0) Urine Specific Kiefer 1.020 (1.005-1.035) Urine Protein Negative (NEGATIVE) Urine Glucose (UA) Negative (NEGATIVE) Urine Ketones Negative (NEGATIVE) Urine Blood Negative (NEGATIVE) Urine Nitrite Negative (NEGATIVE) Urine Bilirubin Negative (NEGATIVE) Urine Urobilinogen Normal MG/DL (0.0-1.0) Urine Leukocyte Esterase Negative (NEGATIVE) Urine HCG, Qualitative Negative (NEGATIVE) Last Vital Signs Date Time Temp Pulse Resp B/P (MAP) Pulse Ox O2 Delivery O2 Flow Rate FiO2 02/07/20 08:49 97.9 95 16 118/76 100 Room Air Status: improved Disposition: HOME, SELF-CARE Condition: Stable Scripts Valacyclovir Hcl* (VALTREX*) 500 Mg Tablet 500 MG ORAL TWICE A DAY, #30 TAB Prov: Jose Goldstein MD 02/07/20 Additional Instructions: Follow up with your doctor for recheck .Return if worse. Jose Goldstein MD Feb 07, 2020 21:52
== END 2020-02-07 08:49 | disposition home or self-care (01) ==
LOC: EMR 08:30
DX: R30.0 Dysuria (principal); Z76.0 Encounter for issue of repeat prescription; R10.9 Unspecified abdominal pain
CPT/HCPCS: 81003; 81025; Z7502; 99282